=== PATIENT | female | born 1930 | race Caucasian/White ===

== ENCOUNTER 2018-02-20 11:06 | Day surgery (SDC) | payer OTHER, BC ==
[2018-02-20] MEDS ORDERED: EPINEPHRINE/PF 1 MG/ML AMP ONE ×2 (11:25→13:05)
[2018-02-20] MEDS ORDERED: DUOVISC 1 KIT OPTH ONE (11:25)
[2018-02-20] MEDS ORDERED: NS 0.9% VIAL 10 ML ONE (11:25)
[2018-02-20] MEDS ORDERED: BALANCED SALT IRRIG PLAIN 500 ML BTL IRR ONE ×2 (11:25→12:57)
[2018-02-20] MEDS ORDERED: NA CHLORIDE 0.9% 500 ML ONE (11:44)
[2018-02-20] MEDS ORDERED: LIDOCAINE 2% MPF 5 ML VIAL ONE (11:58)
[2018-02-20] MEDS ORDERED: TETRACAINE HCL 0.5% 2ML OPTH ONE (11:59)
[2018-02-20] MEDS ORDERED: BUPIVACAINE 0.5% PF 10 ML VIAL ONE (12:09)
[2018-02-20] MEDS: CYCLOPENTOLATE 1% OPTH 2 ML ONE ×3 (12:13→12:23)
[2018-02-20] MEDS: PHENYLEPHRINE 10% OPTH 5ML ONE ×3 (12:13→12:23)
[2018-02-20] MEDS ORDERED: PROPOFOL 200 MG/20 ML VIAL IV ONE (12:38)
[2018-02-20] MEDS ORDERED: LIDOCAINE 1% MPF 5 ML VIAL ONE (12:38)
[2018-02-20] MEDS ORDERED: TRYPAN BLUE 0.5 ML SYR OPTH ONE (13:05)
--- NOTE | 2018-02-20 13:51 | P.BOP ---
Preoperative diagnosis: Mature cataract OS Postoperative diagnosis: Same Primary procedure: Phacoemulsification OS, complex with the use of trypan blue Estimated blood loss: None Anesthesia: Local (Subtenon's infusion with anesthesia for cataract surgery) Complications: None Implants: ZCB00 +21.0 Transferred to: Other (Day surgery) Condition: Good
[2018-02-20] MEDS ORDERED: MOXIFLOXACIN HCL 10 DROPS/ML **OR USE OPTH ONE (13:52)
--- NOTE | 2018-02-20 23:16 | OP ---
Date of Procedure: 02/20/2018 Surgeon: Rochelle Timmons MD Anesthesiologist: 1. Rosalina Perry CRNA. 2. Tahir Fair M.D. Preoperative Diagnosis: Mature cataract, left eye. Operation Performed: Phacoemulsification with intraocular lens implant, left eye complex, with use of trypan blue. Anesthesia: Per cataract surgery. Complications: None. Description Of The Procedure: The patient was prepped with Betadine in day surgery. A drape was placed over the left eye. A lid speculum was placed in the left eye. A conjunctival incision was made in the inferior nasal quadrant with Deana scissors. A 1:1 mixture of 2% Xylocaine and 0.25% bupivacaine was placed around the globe. Approximately 5 mL were used. A [place] balloon was placed on the eye for approximately 5 minutes. The patient was then transferred to the operative room where they were prepped and draped in the usual sterile fashion for ophthalmic surgery. A lid speculum was placed in the left eye. There was poor red reflex and a decision was made to use trypan blue. Paracentesis sites were made superiorly and inferiorly in the limbal cornea. Trypan blue and then balanced salt solution was used to rinse out the trypan blue from the eye. Viscoat was placed in the eye. The temporal conjunctiva was cut at the limbus with Deana scissors. A crescent blade was used to create a tunnel incision in the temporal cornea. A keratome was used to enter the anterior chamber. Provisc was placed in the eye. A 360 degree capsulotomy was performed with a cystitome. The lens was hydrated with balanced salt solution and moved freely. The lens was removed in a stop and chop fashion. 43.55 CDE was required. Irrigation and aspiration were used to remove residual cortex. Provisc was placed in the eye and a ZCB00 +21.0 diopter lens was placed in the capsular bag without complications. Irrigation and aspiration were used to remove residual Viscoat. The paracentesis sites were hydrated with balanced salt solution. The wound and paracentesis sites were inspected and found to be watertight. Intracameral Vigamox 0.07 cc was injected at the end of the procedure. The eye was irrigated with balanced salt solution. The eye was patched with a soft cotton patch and [place] metal shield and the patient was returned to day surgery in good condition. Comments: The view is to complete adequate capsulotomy and trypan blue was used. Discharge Instructions: Ms. Perla is discharged to home in good condition. She is to follow up with Dr. Timmons in the morning. BREA/LANCE Voice ID: [id number] Report ID: [id number] [id number]
== END 2018-02-20 14:37 | disposition home or self-care (01) ==
LOC: OR 11:06
PROVIDERS: ATTEND Ophthalmology Retina Specialist
PROC: 08RK3JZ Replacement of Left Lens with Synthetic Substitute, Percutaneous Approach (ICD-10-PCS; principal; 2018-02-20 12:00)
DX: H26.8 Other specified cataract (principal); I10 Essential (primary) hypertension; M06.9 Rheumatoid arthritis, unspecified; Z83.511 Family history of glaucoma; Z82.3 Family history of stroke
CPT/HCPCS: 66982; J0171 ×2

== ENCOUNTER 2018-04-03 12:57 | Day surgery (SDC) | payer OTHER, BC ==
[2018-04-03] MEDS ORDERED: NS 0.9% VIAL 10 ML ONE (13:27)
[2018-04-03] MEDS ORDERED: TRYPAN BLUE 0.5 ML SYR OPTH ONE (13:28)
[2018-04-03] MEDS ORDERED: DUOVISC 1 KIT OPTH ONE ×2 (13:28→14:17)
[2018-04-03] MEDS ORDERED: MOXIFLOXACIN HCL 10 DROPS/ML **OR USE OPTH ONE (13:28)
[2018-04-03] MEDS ORDERED: EPINEPHRINE/PF 1 MG/ML AMP ONE (13:28)
[2018-04-03] MEDS ORDERED: BALANCED SALT IRRIG PLAIN 500 ML BTL IRR ONE (13:28)
[2018-04-03] MEDS ORDERED: BUPIVACAINE 0.25% PF 10 ML VIAL ONE (13:33)
[2018-04-03] MEDS ORDERED: TETRACAINE HCL 0.5% 2ML OPTH ONE (13:33)
[2018-04-03] MEDS ORDERED: LIDOCAINE 2% INJ, MPF 2 ML 0 ML ONE (13:33)
[2018-04-03] MEDS ORDERED: NA CHLORIDE 0.9% 500 ML ONE (13:33)
[2018-04-03] MEDS ORDERED: LIDOCAINE 2% INJ, MPF 2 ML 2 ML ONE (13:36)
[2018-04-03] MEDS: PHENYLEPHRINE 10% OPTH 5ML ONE ×3 (13:45→13:55)
[2018-04-03] MEDS: CYCLOPENTOLATE 1% OPTH 2 ML ONE ×3 (13:45→13:55)
[2018-04-03] MEDS ORDERED: DUOVISC 1 KIT OPTH NR (14:00)
[2018-04-03] MEDS ORDERED: LIDOCAINE 1% MPF 2 ML AMPULE ONE (14:16)
[2018-04-03] MEDS ORDERED: PROPOFOL 200 MG/20 ML VIAL IV ONE (14:16)
--- NOTE | 2018-04-03 14:56 | P.BOP ---
Preoperative diagnosis: Nuclear sclerotic and cortical cataract OD Postoperative diagnosis: Same Primary procedure: Phacoemulsification with IOL OD Estimated blood loss: None Anesthesia: Local (Subtenon's infusion with anesthesia for cataract surgery) Complications: None Implants: ZCB00 +21.5 Transferred to: Other (Day surgery) Condition: Good
--- NOTE | 2018-04-04 01:47 | OP ---
Date of Procedure: 04/03/2018 Surgeon: Rochelle Timmons MD Anesthesiologist: 1. Ana De La Torre CRNA. 2. Estrada Lawrence M.D. Preoperative Diagnoses: Nuclear sclerotic cataract and cortical cataract, right eye. Operation Performed: Phacoemulsification with intraocular lens implant, right eye. Anesthesia: Per cataract surgery. Complications: None. Description Of Procedure: In day surgery, the patient was prepped with Betadine and draped. A conju nctival incision was made in the inferior nasal quadrant with Deana scissors. A sub-Tenon block c onsisting of a 1:1 mixture of 2% Xylocaine and 0.25% bupivacaine was placed through the conjunctival incision with a blunt cannula. A [place] balloon was placed over the eye and the patient was transferr ed to the operating room. In the operating room the patient was prepped and draped in the usual sterile fashion for ophthalmic surgery. A lid speculum was placed in the right eye. Two paracentesis sites were made superiorly an d inferiorly in the limbal cornea. Viscoat was placed in the anterior chamber and a crescent blade w as used to make a corneal groove and tunnel, and a keratome was used to enter the anterior chamber. Provisc was placed in the anterior chamber and a 360 degree capsulotomy was performed with a cystitom e. The lens was hydrodissected with BSS and rotated freely. The lens was removed with a stop and ch op technique. 11.36 phaco CDE was used to remove the lens. Residual cortex was removed with the irr igation and aspiration. Provisc was placed in the capsular bag. A ZCB00 +21.5 lens was placed in th e capsular bag without complications. Irrigation and aspiration was used to remove residual viscoela stic. The paracentesis sites were hydrated with BSS. The wound and paracentesis sites were inspecte d and found to be watertight. Vigamox 0.07 cc was placed intracamerally at the end of the procedure. The eye was irrigated with balanced salt solution. The eye was patched with a soft cotton patch an d [place] metal shield. The patient was returned to day surgery in good condition. Comments: 1:5000 epinephrine was placed in the anterior chamber prior to Viscoat. Discharge Instructions: Ms. Perla is discharged to home in good condition and is to follow up leslie Timmons in the morning. BREA/LANCE Voice ID: [id number] Report ID: [id number]
== END 2018-04-03 15:25 | disposition home or self-care (01) ==
LOC: OR 12:57
PROVIDERS: ATTEND Ophthalmology Retina Specialist
PROC: 08RJ3JZ Replacement of Right Lens with Synthetic Substitute, Percutaneous Approach (ICD-10-PCS; principal; 2018-04-03 12:30)
DX: H25.11 Age-related nuclear cataract, right eye (principal); H25.011 Cortical age-related cataract, right eye; H25.031 Anterior subcapsular polar age-related cataract, right eye; R00.0 Tachycardia, unspecified; I10 Essential (primary) hypertension; M06.9 Rheumatoid arthritis, unspecified; Z88.8 Allergy status to other drugs, medicaments and biological substances
CPT/HCPCS: 66984; J0171; J2001; J3490